=== PATIENT | female | born 1950 | race Caucasian/White ===

== ENCOUNTER 2021-02-23 08:59 | Day surgery (SDC) | payer MEDICARE, OTHER, SELFPAY ==
--- NOTE | 2021-01-25 16:02 | HP.PCM_ITS ---
History and Physical Date of Admission: 01/26/21 HISTORY AND PHYSICAL ?Lizzy Bob 1950 ? REFERRING PHYSICIAN: Flakita Green CNP ? CHIEF COMPLAINT: Consult (Colonoscopy) ? HPI: The patient is a 70 year old female referred for endoscopy. Lizzy notes no colon complaints. Patient denies any change in bowel habits, weight changes, blood in stools, black tarry stools or abdominal pain. Denies family history of colon issues. The patient notes acid reflux which is well-controlled on a PPI. Lizzy has undergone prior endoscopy. Most recent colonoscopy was in 2013 with findings of a tubulovillous adenoma, per records sent from PCP. Patient's past medical history is significant for CAD s/p stent placement in 2018, hypertension, history of chest discomfort, GERD, fatty liver. She follows with Flakita Green CNP in family medicine and with Dr. Oquendo in cardiology. She is currently maintained on Plavix. ? PAST MEDICAL HISTORY ? Asthma ? ? Coronary artery disease ? ? Dyslipidemia ? ? Fatty liver ? ? GERD (gastroesophageal reflux disease) ? ? Hypertension ? ? Obstructive sleep apnea ? ? PAST SURGICAL HISTORY ? COLONOSCOPY ? ? ? D+C ? 1986 ? HEART CATHETERIZATION ? 10/15/2020 ? PRQ TRLUML CORONARY ANGIOPLASTY ONE ART/BRANCH 05/27/2018? w/ stent placement ? TUBAL LIGATION ? 1984 CURRENT MEDICATIONS ? calcium carbonate 600 mg-cholecalciferol 200 units (CALCIUM 600 + D,3,) 600 mg(1,500mg) -200 unit tab Take 1 tablet by mouth once daily. ? ECHINACEA 1X ORAL Take by mouth. ? MV, MIN [id number] 3 ORAL Take by mouth. ? famotidine (PEPCID) 20 mg tablet Take 20 mg by mouth once daily. ? nitroglycerin sublingual (NITROSTAT) 0.4 mg SL tablet Dissolve 0.4 mg under the tongue as needed. ? carvedilol (COREG) 6.25 mg tablet Take 6.25 mg by mouth twice daily. ? SYMBICORT 160-4.5 mcg/actuation inhaler Inhale 2 Puffs as instructed once daily. ? clopidogrel (PLAVIX) 75 mg tablet Take 75 mg by mouth once daily. ? furosemide (LASIX) 20 mg tablet Take 20 mg by mouth once daily. ? isosorbide mononitrate ER (IMDUR) 60 mg 24 hr tablet Take 60 mg by mouth once daily. ALLERGIES: Penicillins ? PERSONAL HISTORY: ? Smoking status: Former Smoker ? ? Quit date: 11/16/1990 ? ? Years since quittin.0 ? Smokeless tobacco: Never Used Substance Use Topics ? Alcohol use: Not on file ? Drug use: Not on file FAMILY HISTORY: No family history on file. REVIEW OF SYSTEMS: General: The patient denies fatigue, denies weight loss, denies weight gain, denies feeling hot, and denies feelings of cold. Eyes: The patient denies glaucoma, denies eye injury/surgery, wears glasses or contacts. Ear/Nose/Throat: The patient NOTES allergies, NOTES hayfever, denies ear infections, and denies bloody noses. Cardiovascular: The patient denies chest pain, NOTES heart disease, NOTES high blood pressure,denies cardiac stent, denies prior heart attack, denies irregular heart beat, NOTES high cholesterol, denies poor circulation, denies heart failure, other cardiac issues, denies claudication, denies cold feet, denies peripheral arterial stent. Respiratory: The patient denies tuberculosis, denies pneumonia, denies frequent cough, denies pulmonary embolism, NOTES shortness of breath, and denies coughing up blood. Gastrointestinal: The patient denies difficulty swallowing, NOTES acid reflux, denies ulcers, denies vomiting, denies jaundice/hepatitis, denies gallbladder problems, denies black or tarry stools, denies hemorrhoids, denies bleeding from rectum, denies diverticulitis, denies constipation, denies diarrhea, denies loss of stool control, and denies hernias. Kidney/Bladder: The patient denies kidney stones, denies urine infections, and denies bloody urine. Skin: The patient denies a history of skin cancer, denies bleeding/changing moles, and denies a history of skin rash. Neurologic: The patient denies a history of epilepsy/convulsions, denies headaches, denies head/spinal injuries, and denies stroke/TIA. Psychiatric: The paient denies psychiatric medications, denies depression, and denies voices, denies substance abuse. Endocrine: The patient denies thyroid disorders, denies diabetes, and denies hormonal problems. Hematologic: The patient NOTES a history of bruising, NOTES bleeding, and denies anemia, denies blood clots. Infections: The patient NOTES a history of measles and mumps, denies rheumatic fever, and denies sexually transmitted diseases. Musculoskeletal: The patient denies back pain/injury, denies back problems, denies sciatica, denies knee/foot trouble, NOTES arthritis, or denies gout. When was patient's last Mammogram screening? 10/2020 Last Colonoscopy: 2013 Francoise Benito LPN I have confirmed and edited as necessary, the PFSH and ROS obtained by others. PHYSICAL EXAMINATION: General: The patient is 70 year old female, well nourished, well hydrated in no acute distress. The patient is oriented to time, place, and person. VITALS: Blood pressure 128/94, pulse 89, temperature 36.1 ?C (96.9 ?F), height 154.9 cm (5' 1), weight 103.9 kg (229 lb), SpO2 95 %. Body mass index is 43.27 kg/m?. HEENT: Normal cephalic, ataumatic, pupils are equally round, sclera are anicteric, mucous membranes are moist, oropharynx is clear. Neck has no masses, asymmetry or lymphadenopathy. Respiratory: Clear to auscultation and percussion. Normal respiratory excursion and pattern. Cardiac: Examination is regular rate and rhythm. Normal S1/S2 Abdominal exam: Soft, nontender, with no palpable masses. No hepatosplenomegaly. No palpable hernias. Extremities: no clubbing, cyanosis or edema. No adenopathy. LABORATORY VALUES: As Noted RADIOLOGIC STUDIES: As Noted ? IMPRESSION: encounter for colonoscopy ? PLAN: I have reviewed my findings with the surgeon. Will plan for lower endoscopy. We discussed the risks and benefits of the planned endoscopy. I have informed the patient that complications can occur including failure to complete the endoscopy and perforation. The patient had the opportunity to ask questions concerning the planned endoscopy. My staff has also explained the procedure to the patient in understandable terms and has given the patient printed material concerning the procedure. The patient freely consents to surgery. ?The patient was offered a surgery/procedure at a [facility] facility. I have counseled the patient regarding the risk of exposure to and/or potential harm posed by the COVID-19 virus with having a surgery/procedure at this time versus the risk of? delaying the surgery/procedure. It is not possible to know either the risk of delaying the surgery or procedure or chance of getting an infection with perfect accuracy, but a joint decision was made between the patient and myself?to proceed at this time with endoscopy. Request for cardiac clearance and permission to hold Plavix for [address] Oquendo's office I plan to use miralax bowel preparation The patient has medical comorbidities for which we will plan for the procedure to be performed under [facility]. Diagnoses: (I25.10) Coronary artery disease involving [place] coronary artery of [place] heart without angina pectoris (R07.89) Other chest pain (E78.5) Dyslipidemia (K21.9) Gastroesophageal reflux disease, unspecified whether esophagitis present (J45.20) Mild intermittent asthma without complication ? ? CADY Perdue
[2021-02-23] VITALS (8 sets, daily range): BP systolic 124–152; BP diastolic 68–75; PULSE 57–84; RESP 16–18; TEMP 35.7–36.2; O2SAT 96–99; BMI 42.3
[2021-02-23] MEDS: Lactated Ringers 1,000 ML 100 ML IV (09:30)
--- NOTE | 2021-02-23 10:15 | COLBX_PTH ---
PATIENT: JULIO DHILLON DECEMBER LOC: EN U#:[id number] AGE/SX: 70/F ROOM: RE02/23/[address]: Dr. India Rausch MD : 1950 BED: DIS: 02/23/2021 SPEC #: [id number] RECD: 02/23/21 12:17 STATUS: LEONARD REKerry #: [id number] KIMMIE: 02/23/21 10:[address]: India Rausch DEPT: SURGICAL PATHOLOGY RECD BY: Gerda More ENTERED: 02/23/21 13:11 SP TYPE: COLON BX OT DR: Flakita rGeen, ANALYTICAL ENGINEER-C Tissues: A - Cecum, NOS B - Left colon Procedures: Surgery Specimen Level IV HEADER OPERATION: Colonoscopy (MAC) PRE-OP DIAGNOSIS: Screening TISSUE SUBMITTED: A ? Cecum polyp, B ? Left colon polyp MICROSCOPIC DIAGNOSIS A. Cecal polyp, biopsy: Fragments of tubulovillous adenoma. B. Left colon polyp, biopsy: Fragments of tubular adenoma. AM:mitzy 02/24/2021 MICROSCOPIC DESCRIPTION Slides are reviewed. GROSS DESCRIPTION A - Received in fixative is one container labeled with the patient's name and designated cecum polyp. The specimen consists of a saul-pink polyp measuring 1.5 x 1 x 0.5 cm. Also present in the container are multiple fragments of fecal material measuring in aggregate 2.5 x 1 x 0.2 cm. The specimen is totally submitted in one cassette. B - Received in fixative is one container labeled with the patient's name and designated left colon polyp. The specimen consists of multiple irregular fragments of saul soft tissue that in aggregate measure 1 x 0.3 x 0.1 cm. The specimen is totally submitted in one cassette. / SJ:mitzy 02/23/21 TC:5 CPT: 60510 x2
--- NOTE | 2021-02-23 10:47 | OP.COLON_ITS ---
Patient Name: Lizzy Bob Procedure Date: 02/23/2021 9:58 AM Date of : 1950 Age: 70 Procedure: Colonoscopy Indications: High risk colon cancer surveillance: Personal history of colonic polyps Providers: India Rausch MD Referring MD: Flakita Green Medicines: See the Anesthesia note for documentation of the administered medications Patient Profile: Refer to note in patient chart for documentation of history and physical. Last Colonoscopy: 2013. Complications: No immediate complications. Procedure: Pre-Anesthesia Assessment: - see anesthesia note After I obtained informed consent, the scope was passed under direct vision. Throughout the procedure, the patient's blood pressure, pulse, and oxygen saturations were monitored continuously. The Colonoscope was introduced through the anus and advanced to the cecum, identified by the appendiceal orifice, ileocecal valve and palpation. The colonoscopy was performed without difficulty. The patient tolerated the procedure well. The quality of the bowel preparation was adequate to identify polyps 6 mm and larger in size. Scope In: 10:13:54 AM Scope Withdrawal Time 0 hours 17 minutes 13 seconds Scope Out: 10:43:09 AM Total Procedure Duration Time 0 hours 29 minutes 15 seconds Findings: The perianal and digital rectal examinations were normal. Non-bleeding internal hemorrhoids were found. A 15 to 20 mm polyp was found in the cecum. The polyp was semi-pedunculated. The polyp was removed with a hot snare. Resection and retrieval were complete. Verification of patient identification for the specimen was done by the nurse. Estimated blood loss was minimal. A 3 to 8 mm polyp was found in the descending colon. The polyp was sessile. The polyp was removed with a hot snare. Resection and retrieval were complete. Verification of patient identification for the specimen was done by the nurse. Estimated blood loss was minimal. Impression: - Non-bleeding internal hemorrhoids. - One 15 to 20 mm polyp in the cecum, removed with a hot snare. Resected and retrieved. - One 3 to 8 mm polyp in the descending colon, removed with a hot snare. Resected and retrieved. Recommendation: - Repeat colonoscopy date to be determined after pending pathology results are reviewed for surveillance. - Follow up visit via telemedicine with Tasneem Suárez PA-C to discuss results. Call to set this up, thank you - Continue present medications. Procedure Code(s): --- Professional --- 71576, Colonoscopy, flexible; with removal of tumor(s), polyp(s), or other lesion(s) by snare technique Diagnosis Code(s): --- Professional --- Z86.010, Personal history of colonic polyps K64.8, Other hemorrhoids D12.0, Benign neoplasm of cecum D12.4, Benign neoplasm of descending colon CPT copyright 2017 [employer]. All rights reserved. The codes documented in this report are preliminary and upon certified professional coder review may be revised to meet current compliance requirements. MD India Benitez MD 02/23/2021 10:47:13 AM This report has been signed electronically. Number of Addenda: 0 Note Initiated On: 02/23/2021 9:58 AM
--- NOTE | 2021-02-23 10:47 | OP.CCLET_ITS ---
02/23/2021 Flakita Green Re : Colonoscopy procedure for Lizzy Bob Dear Norma This procedure was performed on Tuesday, February 23, 2021. My impressions and recommendations are as follows: Impressions : - Non-bleeding internal hemorrhoids. - One 15 to 20 mm polyp in the cecum, removed with a hot snare. Resected and retrieved. - One 3 to 8 mm polyp in the descending colon, removed with a hot snare. Resected and retrieved. Recommendations : - Repeat colonoscopy date to be determined after pending pathology results are reviewed for surveillance. - Follow up visit via telemedicine with Tasneem Suárez PA-C to discuss results. Call to set this up, thank you - Continue present medications. My findings are described in the full procedure note, which is enclosed. If I can be of further assistance, please feel free to contact me at Doctor phone number(s): , Work: . Sincerely, MD India Benitez MD 02/23/2021 10:47:13 AM This report has been signed electronically.
== END 2021-02-23 11:37 | disposition home or self-care (01) ==
LOC: EN 09:00 → AC 09:03
PROVIDERS: PCP Nurse Practitioner Primary Care; Referring Provider Nurse Practitioner Primary Care; Visit Provider Surgery
PROC: 0DJD8ZZ Inspection of Lower Intestinal Tract, Via Natural or Artificial Opening Endoscopic (ICD-10-PCS; CPT 45378; principal; 2021-02-23 10:10)
DX: Z12.11 Encounter for screening for malignant neoplasm of colon (principal); D12.0 Benign neoplasm of cecum; D12.4 Benign neoplasm of descending colon; K64.8 Other hemorrhoids; I25.10 Atherosclerotic heart disease of native coronary artery without angina pectoris; I10 Essential (primary) hypertension; E78.5 Hyperlipidemia, unspecified; J45.20 Mild intermittent asthma, uncomplicated; K76.0 Fatty (change of) liver, not elsewhere classified; K21.9 Gastro-esophageal reflux disease without esophagitis; G47.33 Obstructive sleep apnea (adult) (pediatric); Z79.02 Long term (current) use of antithrombotics/antiplatelets; Z79.82 Long term (current) use of aspirin; Z79.51 Long term (current) use of inhaled steroids; Z79.899 Other long term (current) drug therapy; Z86.010 Personal history of colon polyps; Z87.19 Personal history of other diseases of the digestive system; Z87.891 Personal history of nicotine dependence; Z95.5 Presence of coronary angioplasty implant and graft
CPT/HCPCS: 45385; 88305; J7120; J2405